=== PATIENT | female | born 1970 | race Caucasian/White ===

== ENCOUNTER 2017-01-29 15:41 | Emergency (ER) | payer OTHER ==
--- NOTE | 2017-01-29 15:47 | PDOC ---
*DC/Admit/Observation/Transfer - Discharge Dispostion Condition at time of disposition: Stable
[2017-01-29 15:52] VITALS: BP 113/48; PULSE 87; TEMP 98.4; BMI 20.7
--- NOTE | 2017-01-29 16:00 | PDOC ---
History of Present Illness - General Chief Complaint: Laceration Stated Complaint: LACERATION TO RIGHT THUMB Time Seen by Provider: 01/29/17 15:47 - History of Present Illness Initial Comments: 01/29/17 15:54 Ms. Elise is a 46 year old female with no significant past medical history who presents to the emergency department immediately after she cut her thumb while preparing an avacado. The patient denies chest pain, shortness of breath, headache and dizziness. Denies fever, chills, nausea, vomit, diarrhea and constipation. Denies dysuria, frequency, urgency and hematuria. Allergies: NSAIDs Past History - Past Medical History Allergies/Adverse Reactions: Allergies Allergy/AdvReac Type Severity Reaction Status Date / Time NONSTEROIDAL ANTI-INFLAMATORY Allergy Intermediate GASTRITIS Uncoded 01/29/17 15 :43 Home Medications: Ambulatory Orders NK [No Known Home Medication] 01/29/17 Seizures: No - Psycho/Social/Smoking Cessation Hx Anxiety: No Suicidal Ideation: No Smoking Status: No Smoking History: Never smoked Number of Cigarettes Smoked Daily: 0 Hx Alcohol Use: Yes (SOCIAL) Drug/Substance Use Hx: No Substance Use Type: Alcohol *Physical Exam - Vital Signs Last Vital Signs Temp Pulse Resp BP Pulse Ox 98.4 F 87 16 113/48 100 01/29/17 15:42 01/29/17 15:42 01/29/17 15:42 01/29/17 15:42 01/29/17 15:42 *DC/Admit/Observation/Transfer - Discharge Dispostion Condition at time of disposition: Stable
--- NOTE | 2017-01-29 16:16 | PDOC ---
History of Present Illness <Milind Gutierrez - Last Filed: 01/29/17 17:02> - General History Source: Patient Exam Limitations: No Limitations - History of Present Illness Initial Comments: 01/29/17 16:16 The patient is a 46 year old female, with no significant past medical history, who presents today with a laceration on the base of her right thumb that occurred just prior to arrival to the emergency room. She explains that she was cutting an avocado with a kitchen knife when it accidentally slipped. She immediately applied pressure and came to the ER. The laceration is no longer actively bleeding. She notes that her last tetanus shot was within the past 10 years. Denies numbness, tingling. Denies fever, chills. Denies any other injuries. Allergies: NSAIDs <Dyana Huynh - Last Filed: 01/29/17 17:10> - General Chief Complaint: Laceration Stated Complaint: LACERATION TO RIGHT THUMB Time Seen by Provider: 01/29/17 15:47 Past History - Past Medical History Seizures: No - Psycho/Social/Smoking Cessation Hx Anxiety: No Suicidal Ideation: No Smoking Status: No Smoking History: Never smoked Number of Cigarettes Smoked Daily: 0 Hx Alcohol Use: Yes (SOCIAL) Drug/Substance Use Hx: No Substance Use Type: Alcohol <Milind Gutierrez - Last Filed: 01/29/17 17:02> <Dyana Huynh - Last Filed: 01/29/17 17:10> - Past Medical History Allergies/Adverse Reactions: Allergies Allergy/AdvReac Type Severity Reaction Status Date / Time NONSTEROIDAL ANTI-INFLAMATORY Allergy Intermediate GASTRITIS Uncoded 01/29/17 15 :43 Home Medications: Ambulatory Orders NK [No Known Home Medication] 01/29/17 Review of Systems - Review of Systems Able to Perform ROS?: Yes Comments:: 01/29/17 16:16 GENERAL/CONSTITUTIONAL: No fever or chills. No weakness. MUSCULOSKELETAL: No joint or muscle swelling or pain. No neck or back pain. SKIN: +laceration on the right thumb. NEUROLOGIC: No headache, vertigo, loss of consciousness, or change in strength/ sensation. <Dyana Huynh - Last Filed: 01/29/17 17:10> *Physical Exam - Vital Signs Last Vital Signs Temp Pulse Resp BP Pulse Ox 98.4 F 87 16 113/48 100 01/29/17 15:42 01/29/17 15:42 01/29/17 15:42 01/29/17 15:42 01/29/17 15:42 <Milind Gutierrez - Last Filed: 01/29/17 17:02> - Vital Signs Last Vital Signs Temp Pulse Resp BP Pulse Ox 98.4 F 87 16 113/48 100 01/29/17 15:42 01/29/17 15:42 01/29/17 15:42 01/29/17 15:42 01/29/17 15:42 - Physical Exam Comments: 01/29/17 16:17 GENERAL: Awake, alert, and fully oriented, in no acute distress HEAD: No signs of trauma RIGHT HAND: +1cm superficial laceration in the crease over the IP joint on the palmar surface of the right hand. Neurovascularly intact. No active bleeding. NEUROLOGICAL: Cranial nerves II through XII grossly intact. Normal speech, normal gait <Dyana Huynh - Last Filed: 01/29/17 17:10> Procedures - Laceration/Wound Repair Right 1st digit Wound Length: to 2.5 cm Wound's Depth, Shape: superficial Anesthesia: 1% Lidocaine Wound Repaired With: Sutures Suture Size/Type: 5:0 Number of Sutures: 4 <Dyana Huynh - Last Filed: 01/29/17 17:10> *DC/Admit/Observation/Transfer - Discharge Dispostion Admit: No - Attestations Physician Attestion: 01/29/17 16:16 I, Dr. Milind Gutierrez, attest that this document has been prepared under my direction and personally reviewed by me in its entirety. I further attest, that it accurately reflects all work, treatment, procedures and medical decision -making performed by me. <Milind Gutierrez - Last Filed: 01/29/17 17:02> - Attestations Scribe Attestion: 01/29/17 16:17 Documentation prepared by DANNY Barnett, acting as medical fee clerk for Milind Gutierrez MD. <Dyana Huynh - Last Filed: 01/29/17 17:10> Diagnosis at time of Disposition: Laceration of right thumb Qualifiers: Encounter type: initial encounter Damage to nail status: without damage Foreign body presence: without foreign body Qualified Code(s): S61.011A - Laceration without foreign body of right thumb without damage to nail, initial encounter - Discharge Dispostion Condition at time of disposition: Stable - Patient Instructions Printed Discharge Instructions: DI for Laceration Repair Additional Instructions: Mrs Elise- Sorry this happened to you today. Return to us if any signs of infection. Stitches can come out in 7 to 10 days. Thanks for allowing us to care for you. Best- DR. Milind Gutierrez Ice packs for swelling, motrin or tylenol for pain. Keep it covered while at work and use a healthy coating of antibiotic ointment to keep it moist.... it will be easier to take out the stitches.
== END 2017-01-29 17:13 | disposition home or self-care (01) ==
LOC: FER 15:41
PROC: 0HQFXZZ Repair Right Hand Skin, External Approach (ICD-10-PCS; principal; 2017-01-29)
DX: S61.011A Laceration without foreign body of right thumb without damage to nail, initial encounter (principal); W26.0XXA Contact with knife, initial encounter; Y93.G3 Activity, cooking and baking; Y92.000 Kitchen of unspecified non-institutional (private) residence as the place of occurrence of the external cause
CPT/HCPCS: 99282-25